=== PATIENT | male | born 1960 | race Caucasian/White ===

== ENCOUNTER 2022-09-04 02:23 | Day surgery (SDC) | payer OTHER, SELFPAY ==
[2022-08-21 13:54] VITALS: BMI 27.8
[2022-09-04 08:54] VITALS: BP 163/102; PULSE 73; RESP 18; TEMP 36.6; O2SAT 100
--- NOTE | 2022-09-04 09:08 | WPDANESEPPF ---
Anes - Initial Pre Proc Eval Procedure: Operation Date: 09/04/22 10:00 Proposed Procedures p Screening Colonoscopy - Yg Sotelo MD Date/Time: 09/04/22 09:08 Surgeon: Yg Sotelo MD Pre Op Diagnosis: hx of colon polyps, neoplasm screening Patient Data Age: 62 Gender: M Height: 1.68 m Weight: 76.6 kg Last Vital Signs Temp 36.6 C 09/04/22 08:54 Pulse 73 09/04/22 08:54 Resp 18 09/04/22 08:54 BP 163/102 H 09/04/22 08:54 Pulse Ox 100 09/04/22 08:54 O2 Del Method Room Air 09/04/22 08:54 Allergies Allergy/AdvReac Type Severity Reaction Status Date / Time No Known Allergies Allergy Unknown Verified 09/04/22 08:53 Home Medications Medication Instructions Recorded Confirmed Type aspirin 81 mg tablet,delayed 81 mg PO DAILY 11/23/19 08/21/22 History release (Adult Low Dose Aspirin) atorvastatin 40 mg tablet (Lipitor) 40 mg PO DAILY #90 tabs 10/23/21 08/21/22 Rx lisinopril 10 mg tablet See Rx Instructions .Route 10/23/21 08/21/22 Rx .COMPLEX #90 tabs nitroglycerin 0.3 mg sublingual 0.3 mg sublingual Q5M PRN chest 03/07/22 08/21/22 Rx tablet (Nitrostat) pain #25 tabs metoprolol succinate 50 mg 50 mg PO DAILY #90 tabs 07/24/22 08/21/22 Rx tablet,extended release 24 hr (Toprol XL) Patient hx anesthesia problems: none Family hx anesthesia problems: none Results Review: All pre-operative results and documents have been reviewed as part of the pre-operative evaluation. [facility] Past Medical History Medical History (Updated 09/04/22 @ 09:09 by Thor Santoro MD) Family history of heart disease in male family member before age 55 History of pneumonia HTN (hypertension) Overweight (BMI 25.0-29.9) Surgical History Surgical History History of colonoscopy (~03/2017) Family History Family History Father Hypertension, Onset Age: 58 Family history of cardiovascular disease, Onset Age: 58 Family history of coronary artery disease, Onset Age: 58 Mother Family history of Alzheimer's disease, Onset Age: 80 Other Family history of elevated blood lipids Social History Social History Smoking packs per day: 0.5 Smoking cigarettes per day: 10.0 Smoking status: Former smoker Tobacco type: cigarettes Smoking end date: 07/22/92 Alcohol intake: current Drinks per week: 6 Substance use: never Substance use type: does not use Lack of Transportation: No Lack of Food: Never True Current Housing: I Have Housing Concerned About Future Housing: No Difficulty Paying Gas/Electric Bills: No Difficulty Paying for Meds: No Currently Unemployed: No Education: High School Diploma/GED Difficulty w/ Childcare or Family Care: No Living arrangements: with family Spiritual care concerns: No Anes - Eval Final PreProcedure Day of Procedure 09/04/22 09:08 Patient weight: overweight Heart: regular rate and rhythm Lungs: clear to auscultation Airway: Mallampati scale class II Neurological: alert and oriented Last oral intake: >/= 8 hours ASA classification: II Emergent: no Anesthetic plan: proceed Anesthesia type and monitoring: general GIVS and standard monitoring Results Review: All pre-operative results and documents have been reviewed as part of the pre-operative evaluation. Informed Consent: The patient's anesthetic plan and its attendant risks and benefits were discussed with the patient/family/POA. Questions were solicited and answers provided to the satisfaction of the patient/family/POA.
[2022-09-04] MEDS: LACTATED RINGERS 1,000 ML 150 ML IV CONT (09:10)
--- NOTE | 2022-09-04 09:26 | PM.HPGS ---
History of Present Illness History of Present Illness Consent: Risks, benefits, and alternatives have been discussed and questions answered. Patient agrees to proceed with procedure. Chief complaint: hx of colon polyps, neoplasm screening Narrative: Cl Villa is a 62 year old male Presents for screening colonoscopy. Patient has a prior history of colon polyps. Patient reports that his current weight appetite and bowel movements are normal. Patient denies abdominal pain. He has had no bleeding. Family history is noncontributory. Review of Systems Review of Systems: Review of systems noncontributory. [facility] Past Medical History Medical History (Updated 09/04/22 @ 09:27 by Yg Sotelo MD) Family history of heart disease in male family member before age 55 History of pneumonia HTN (hypertension) Overweight (BMI 25.0-29.9) Surgical History Surgical History History of colonoscopy (~03/2017) Family History Family History Father Hypertension, Onset Age: 58 Family history of cardiovascular disease, Onset Age: 58 Family history of coronary artery disease, Onset Age: 58 Mother Family history of Alzheimer's disease, Onset Age: 80 Other Family history of elevated blood lipids Social History Social History Smoking packs per day: 0.5 Smoking cigarettes per day: 10.0 Smoking status: Former smoker Tobacco type: cigarettes Smoking end date: 07/22/92 Alcohol intake: current Drinks per week: 6 Substance use: never Substance use type: does not use Lack of Transportation: No Lack of Food: Never True Current Housing: I Have Housing Concerned About Future Housing: No Difficulty Paying Gas/Electric Bills: No Difficulty Paying for Meds: No Currently Unemployed: No Education: High School Diploma/GED Difficulty w/ Childcare or Family Care: No Living arrangements: with family Spiritual care concerns: No Meds Home Medications and Allergies Home Medications Medication Instructions Recorded Confirmed Type aspirin 81 mg tablet,delayed 81 mg PO DAILY 11/23/19 08/21/22 History release (Adult Low Dose Aspirin) atorvastatin 40 mg tablet (Lipitor) 40 mg PO DAILY #90 tabs 10/23/21 08/21/22 Rx lisinopril 10 mg tablet See Rx Instructions .Route 10/23/21 08/21/22 Rx .COMPLEX #90 tabs nitroglycerin 0.3 mg sublingual 0.3 mg sublingual Q5M PRN chest 03/07/22 08/21/22 Rx tablet (Nitrostat) pain #25 tabs metoprolol succinate 50 mg 50 mg PO DAILY #90 tabs 07/24/22 08/21/22 Rx tablet,extended release 24 hr (Toprol XL) Allergies Allergy/AdvReac Type Severity Reaction Status Date / Time No Known Allergies Allergy Unknown Verified 09/04/22 08:53 Vital Signs Vital Signs - 24 hr 09/04/22 08:54 Temperature 97.8 F Pulse Rate 73 Respiratory Rate 18 Blood Pressure 163/102 H Pulse Oximetry 100 Oxygen Delivery Room Air Exam Narrative: Physical exam reveals patient to be alert. Vital signs stable. HEENT exam is unremarkable. Patient is anicteric. Lungs are clear to auscultation and percussion. Heart is without murmur or extra sounds. Abdomen bowel sounds are present soft nontender with no organomegaly. Digital external rectal exam is normal. Assessment and Plan Assessment and plan (1) History of colon polyps: Code(s): Z86.010 - Personal history of colonic polyps Status: Acute Assessment and Plan: Patient has a prior history of colon polyps. Plan for surveillance colonoscopy now and consider this a 5 year intervals in the future.
[2022-09-04 10:29] VITALS: BP 121/83; PULSE 77; RESP 13; O2SAT 97
[2022-09-04 10:39] VITALS: BP 137/78; PULSE 75; RESP 23; O2SAT 98
[2022-09-04 10:49] VITALS: BP 130/79; PULSE 70; RESP 18; O2SAT 98
== END 2022-09-04 10:55 | disposition home or self-care (01) ==
PROVIDERS: PCP Family Medicine; Visit Provider Internal Medicine Gastroenterology
PROC: 0DJD8ZZ Inspection of Lower Intestinal Tract, Via Natural or Artificial Opening Endoscopic (ICD-10-PCS; CPT 45378; principal; 2022-09-04 10:00)
DX: Z12.11 Encounter for screening for malignant neoplasm of colon (principal); K64.8 Other hemorrhoids; K57.30 Diverticulosis of large intestine without perforation or abscess without bleeding; Z86.010 Personal history of colon polyps; I10 Essential (primary) hypertension; Z79.82 Long term (current) use of aspirin; Z87.891 Personal history of nicotine dependence
CPT/HCPCS: 45378; J2704; J7120